=== PATIENT | male | born 1945 | race Caucasian/White ===

== ENCOUNTER → 2016-10-15 | Outpatient (CLI) | payer MEDICARE ==
[~2016-10-15] MED LIST: AMLODIPINE BESYL5 MG PO; AMPYRA10 MG PO; FINASTERIDE5 M1 PO; MODAFINIL200 M1 PO; NUVIGIL250 MG PO; REBIF44 MCG/0.5 SC; SIMVASTATIN20 MG PO; TAMSULOSIN HCL0.4 MG PO; VITAMIN D-32000 UNIT PO; ZESTRIL2.5 MG PO
--- NOTE | ~2016-10-15 | PR ---
[place], [place] PROGRESS NOTE NAME: MK TORRES UNIT #: [id number] ROOM: DOCTOR: LAINE NELSON MD,KRYSTINBIRTHDATE: [birth year] DOS: This stress test was done for evaluation of abnormal EKG and very strong family history. EKG shows incomplete bundle branch block. Lexiscan was injected. No EKG changes were seen and no change in blood pressure was seen. Radiological nuclear studies are awaited. KYMBERLY JANG MD CM:PNTRANS 4 KRYSTIN NELSON MD 10/16/16 0850 [email or web address]
--- NOTE | ~2016-10-15 | ST ---
[place], [place] EXERCISE STRESS TEST REPORT NAME: MK TORRES UNIT #: [id number] ROOM: DOCTOR: LAINE NELSON MD,KRYSTIN BIRTHDATE: [birth year] DOS: This stress test was done for evaluation of abnormal EKG and very strong family history. EKG shows incomplete bundle branch block. Lexiscan was injected. No EKG changes were seen and no change in blood pressure was seen. Radiological nuclear studies are awaited. KYMBERLY JANG MD CM:STRESS:EXERCISE STRESS TEST REPORT 4 [id number] KRYSTIN NELSON MD
[2016-10-15 08:17] LABS: CHOLESTEROL 189 mg/dL (<200); HDL CHOLESTEROL 47 mg/dl (40-60); LDL CHOLESTEROL 106 mg/dL (9-159); TRIGLYCERIDES 181 mg/dl (<150); VLDL CHOLESTEROL 36 mg/dL (6-40)
== END | disposition home or self-care (01) ==
LOC: LAB 02:30 → CARD 02:30
PROVIDERS: Internal Medicine
DX: I10 Essential (primary) hypertension (principal); R94.31 Abnormal electrocardiogram [ECG] [EKG]; R53.83 Other fatigue

== ENCOUNTER → 2024-08-06 | Outpatient (CLI) | payer MEDICARE | END | disposition home or self-care (01) | LOC: US 15:00 | PROVIDERS: ATTEND Podiatrist | DX: R60.0 Localized edema (principal); M79.605 Pain in left leg ==